=== PATIENT | male | born 2000 | race Caucasian/White ===

== ENCOUNTER 2021-03-22 13:46 | Emergency (ER) | payer OTHER ==
[~2021-03-22] VITALS: Ht 167.6 cm; Wt 59.0 kg
[2021-03-22] MEDS ORDERED: WELLBUTRIN SR150 MG PO (14:15)
[2021-03-22 14:16] LABS: ABSOLUTE NEUTROPHILS 7.5 thou/uL (1.4-8.2); BASOPHILS 0.7 % (0.0-2.0); EOSINOPHILS 2.2 % (0.0-3.0); HEMATOCRIT 45.6 % (42.0-52.0); HEMOGLOBIN 15.6 gm/dL (14.0-18.0); LYMPHOCYTES 15.5 % (24.0-44.0); MCH 31.7 pg (26.0-34.0); MCHC 34.3 g/dL (28.0-37.0); MCV 92.5 fL (80.0-100.0); PLATELET COUNT 305 thou/uL (150-400); POLYS 74.6 % (36.0-66.0); RBC 4.93 mil/uL (4.50-6.00); RDW 13.1 % (10.5-14.5); WBC 10.1 thou/uL (4.0-11.0)
[2021-03-22 14:31] LABS: ANION GAP 9 mmol/L (7-16); BUN 10 mg/dL (7-18); CHLORIDE 102 mmol/L (98-107); CO2 27 mmol/L (21-32); GLUCOSE 93 mg/dL (74-106); SODIUM 138 mmol/L (136-145)
[2021-03-22 14:57] VITALS: BP 128/78
--- NOTE | 2021-03-23 07:26 | EKG ---
[place] [address] [facility] [place] [address] ELECTROCARDIOGRAM REPORT Name: ANTONELLA SPEARS Room #: DEP WANG Marcos#: [id number] Admission: 03/22/21 Attend Phys: Discharge: 03/22/21 Date of : [birth year] Report #: [id number] [facility] ED Test Date: 2021-03-22 Test Time: 14:00:58 Pat Name: ANTONELLA SPEARS Department: Room: Gender: M Public Address System Installer: ELENA AYALA : 2000 Requested By: Theo Bermeo Order Number: [id number] MD: Lawrence Douglas Measurements Intervals [place] Rate: 93 P: 86 MT: 148 QRS: 91 QRSD: 85 T: 65 QT: 339 QTc: 422 Interpretive Statements Sinus rhythm Borderline right axis deviation ST elev, probable normal early repol pattern No previous ECG available for comparison Electronically Signed On 03-23-2021 7:26:25 BRICK SORTER by Lawrence Douglas [email or web address] <ELECTRONICALLY SIGNED> By: Lawrence Douglas MD, [facility] 03/23/[address] [facility] Lawrence Douglas MD, FACVania /EPI
== END 2021-03-22 15:11 | disposition home or self-care (01) ==
LOC: ER 13:46
PROVIDERS: Nurse Practitioner
DX: J06.9 Acute upper respiratory infection, unspecified (principal); Z20.822 Contact with and (suspected) exposure to COVID-19; R07.89 Other chest pain; R06.00 Dyspnea, unspecified; F17.200 Nicotine dependence, unspecified, uncomplicated; Z79.899 Other long term (current) drug therapy